=== PATIENT | female | born 1980 | race American Indian/Alaskan Native ===

== ENCOUNTER 2020-10-02 11:49 | Inpatient (IN) | payer OTHER ==
[2020-10-02 13:42] LABS: Bilirubin,Urine NEG (Negative); Blood,Urine NEG (Negative); Color,Urine Yellow (Yellow); Mucus,Urine FEW /HPF; Protein,Urine <15 mg/dL mg/dL (Negative); Urobilinogen,Urine < 2.0 mg/dL (<2.0)
[2020-10-02 13:58] LABS: Basophils # (Auto) 0.1 K/mm3 (0.0-0.1); Eosinophils % (Auto) 0.6 % (0.0-4.3); Hematocrit 40.7 % (30.3-42.9); Hemoglobin 14.1 gm/dl (10.1-14.3); Lymphocytes # (Auto) 1.3 K/mm3 (1.2-5.4); Mean Corpuscular HGB Conc 35 % (30-34); Mean Corpuscular Volume 85 fl (79-97); Monocytes # (Auto) 0.5 K/mm3 (0.0-0.8); Monocytes % (Auto) 7.4 % (0.0-7.3); Platelet Count 298 K/mm3 (140-440); Red Cell Distribution Width 15.5 % (13.2-15.2)
[2020-10-02 14:12] LABS: Alanine Aminotransferase 11 units/L (7-56); Albumin 4.3 g/dL (3.9-5); Blood Urea Nitrogen 9 mg/dL (7-17); Calcium 9.3 mg/dL (8.4-10.2); Hemolysis Index 7
[2020-10-02 14:19] LABS: BUN/Creatinine Ratio 18
[2020-10-02] MEDS ORDERED: MORPHINE 4 MG/1 ML INJ IV ONE (16:08)
[2020-10-02] MEDS ORDERED: ONDANSETRON 4 MG/2 ML INJ IV ONE (16:08)
[2020-10-02] MEDS ORDERED: SODIUM CHLORIDE 0.9% 1000 ML 1,000 ML IV ONE (16:08)
[2020-10-02] MEDS ORDERED: FAMOTIDINE 20 MG/2 ML INJ IV ONE (16:08)
--- NOTE | 2020-10-02 17:51 | Ultrasound Report ---
LIMITED RUQ ABDOMINAL ULTRASOUND INDICATION: RUQ/epigastric pain, hx of gallstones. COMPARISON: No relevant prior imaging study available. FINDINGS: Pancreas: Visualized portions show no significant abnormality. Abdominal Aorta: No significant abnormality. IVC: No significant abnormality. Liver: No significant abnormality. Normal hepatopedal blood flow in the main portal vein. Gallbladder: No stones in gallbladder with mild wall thickening. Bile ducts: No significant abnormality. Common bile duct measures 5 mm. Right kidney: No significant abnormality visualized.. Free fluid: None. Additional Findings: None. IMPRESSION: 1. Multiple stones in the gallbladder with mild gallbladder wall thickening raising the possibility o f acute cholecystitis.. Signer Name: Anastacio Tovar MD Signed: 10/02/2020 5:47 PM Workstation Name: [id number]
--- NOTE | 2020-10-02 18:11 | Emergency Department Report ---
ED Abdominal Pain HPI - General Chief Complaint: Abdominal Pain Stated Complaint: ABDOMINAL PAIN Time Seen by Provider: 10/02/20 16:01 Source: patient Mode of arrival: Ambulatory Limitations: No Limitations - History of Present Illness Initial Comments: Patient is a 40-year-old female presents emergency room with complaints of epigastric and right upper quadrant pain that began last night. She has associated nausea and vomiting. She denies any fever, diarrhea, urinary symptoms. She denies any sick contacts or recent travel. Patient states that s he recently just started back on a keto diet approximately 5 days ago. Patient states that she drinks alcohol 2-3 times a week. Patient states that she was diagnosed with gallstones a few years ago but never followed back up. She denies any allergies to medications. She denies any past abdominal surgical history. Severity scale (0 -10): 4 - Related Data Previous Rx's Medication Instructions Recorded Last Taken Type Acetaminophen/Codeine [Tylenol #3] 1 tab PO Q6H PRN #25 tab 08/08/14 Unknown Rx Cyclobenzaprine [Flexeril 10mg] 10 mg PO TID PRN #30 tablet 08/08/14 Unknown Rx Ibuprofen [Motrin] 600 mg PO Q8H PRN #50 tablet 08/08/14 Unknown Rx Acetaminophen/Codeine [Tylenol 1 tab PO Q6H PRN #12 tab 08/11/18 Unknown Rx /Codeine # 3 tab] Ondansetron [Zofran Odt] 4 mg PO Q8HR PRN #20 tab.rapdis 08/11/18 Unknown Rx Allergies Allergy/AdvReac Type Severity Reaction Status Date / Time No Known Allergies Allergy Unverified 08/08/14 15:37 ED Review of Systems ROS: Stated complaint: ABDOMINAL PAIN Other details as noted in HPI Comment: All other systems reviewed and negative ED Past Medical Hx - Past Medical History Previous Medical History?: No - Surgical History Past Surgical History?: No - Social History Smoking Status: Current Every Day Smoker Substance Use Type: Alcohol - Medications Home Medications: Home Medications Medication Instructions Recorded Confirmed Last Taken Type Acetaminophen/Codeine [Tylenol #3] 1 tab PO Q6H PRN #25 tab 08/08/14 Unknown Rx Cyclobenzaprine [Flexeril 10mg] 10 mg PO TID PRN #30 tablet 08/08/14 Unknown Rx Ibuprofen [Motrin] 600 mg PO Q8H PRN #50 tablet 08/08/14 Unknown Rx Acetaminophen/Codeine [Tylenol 1 tab PO Q6H PRN #12 tab 08/11/18 Unknown Rx /Codeine # 3 tab] Ondansetron [Zofran Odt] 4 mg PO Q8HR PRN #20 tab.rapdis 08/11/18 Unknown Rx ED Physical Exam - General Limitations: No Limitations General appearance: alert, in no apparent distress - Head Head exam: Present: atraumatic, normocephalic - Eye Eye exam: Present: normal appearance - ENT ENT exam: Present: mucous membranes moist - Respiratory Respiratory exam: Present: normal lung sounds bilaterally. Absent: respiratory distress, wheezes, rales, rhonchi, stridor, chest wall tenderness, accessory muscle use, decreased breath sounds, prolonged expiratory - Cardiovascular Cardiovascular Exam: Present: regular rate, normal rhythm, normal heart sounds. Absent: systolic murmur, diastolic murmur, rubs, gallop - GI/Abdominal GI/Abdominal exam: Present: soft, tenderness (epigastric, RUQ), normal bowel sounds. Absent: distended, guarding, rebound, rigid - Neurological Exam Neurological exam: Present: alert, oriented X3 - Psychiatric Psychiatric exam: Present: normal affect, normal mood - Skin Skin exam: Present: warm, dry, intact ED Course Vital Signs 10/02/20 10/02/20 10/02/20 12:38 17:40 19:00 Temperature 97.9 F Pulse Rate 75 Respiratory 20 16 16 Rate Blood Pressure 134/89 O2 Sat by Pulse 99 Oximetry 10/02/20 10/02/20 10/02/20 19:30 21:31 21:46 Temperature Pulse Rate 72 70 Respiratory 18 13 Rate Blood Pressure 129/84 129/84 O2 Sat by Pulse 98 100 Oximetry 10/02/20 10/02/20 10/02/20 22:25 22:26 22:31 Temperature 97.6 F Pulse Rate Respiratory Rate Blood Pressure 142/90 142/90 O2 Sat by Pulse 96 97 Oximetry 10/02/20 22:45 Temperature Pulse Rate Respiratory Rate Blood Pressure 141/96 O2 Sat by Pulse 99 Oximetry - Consultations Consultation #1: 10/02/20 18:[address] Chadwick, general surgeon regarding patient presentation and results, advised to keep patient n.p.o., give IV antibiotics, will see patient in the morning 10/02/20 18:[address] Fiore, hospitalist will accept and resume care of patient, advised to bridge patient to 3B surgical unit ED Medical Decision Making - Lab Data Result diagrams: 10/02/20 13:38 10/02/20 13:38 Lab Results 10/02/20 10/02/20 10/02/20 Range/Units 12:56 13:38 13:38 WBC 7.0 (4.5-11.0) K/mm3 RBC 4.80 (3.65-5.03) M/mm3 Hgb 14.1 (10.1-14.3) gm/dl Hct 40.7 (30.3-42.9) % MCV 85 (79-97) fl MCH 29 (28-32) pg MCHC 35 H (30-34) % RDW 15.5 H (13.2-15.2) % Plt Count 298 (140-440) K/mm3 Lymph % (Auto) 19.0 (13.4-35.0) % [place] % (Auto) 7.4 H (0.0-7.3) % Eos % (Auto) 0.6 (0.0-4.3) % Baso % (Auto) 1.0 (0.0-1.8) % Lymph # (Auto) 1.3 (1.2-5.4) K/mm3 [place] # (Auto) 0.5 (0.0-0.8) K/mm3 Eos # (Auto) 0.0 (0.0-0.4) K/mm3 Baso # (Auto) 0.1 (0.0-0.1) K/mm3 Seg Neutrophils % 72.0 H (40.0-70.0) % Seg Neutrophils # 5.0 (1.8-7.7) K/mm3 Sodium 131 L (137-145) mmol/L Potassium 4.4 (3.6-5.0) mmol/L Chloride 98.9 (98-107) mmol/L Carbon Dioxide 21 L (22-30) mmol/L Anion Gap 16 mmol/L BUN 9 (7-17) mg/dL Creatinine 0.5 L (0.6-1.2) mg/dL Estimated GFR > 60 ml/min BUN/Creatinine Ratio 18 % Glucose 100 (65-100) mg/dL Calcium 9.3 (8.4-10.2) mg/dL Total Bilirubin 0.30 (0.1-1.2) mg/dL AST 15 (5-40) units/L ALT 11 (7-56) units/L Alkaline Phosphatase 48 (35-129) units/L Total Protein 8.1 (6.3-8.2) g/dL Albumin 4.3 (3.9-5) g/dL Albumin/Globulin Ratio 1.1 % Lipase 46 (13-60) units/L HCG, Qual (Negative) Urine Color Yellow (Yellow) Urine Turbidity Clear (Clear) Urine pH 7.0 (5.0-7.0) Ur Specific [place] 1.014 (1.003-1.030) Urine Protein <15 mg/dl (Negative) mg/dL Urine Glucose (UA) Neg (Negative) mg/dL Urine Ketones 20 (Negative) mg/dL Urine Blood Neg (Negative) Urine Nitrite Pos (Negative) Urine Bilirubin Neg (Negative) Urine Urobilinogen < 2.0 (<2.0) mg/dL Ur Leukocyte Esterase Neg (Negative) Urine WBC (Auto) 1.0 (0.0-6.0) /HPF Urine RBC (Auto) 2.0 (0.0-6.0) /HPF U Epithel Cells (Auto) 4.0 (0-13.0) /HPF Urine Mucus Few /HPF // Range/Units 13:38 WBC (4.5-11.0) K/mm3 RBC (3.65-5.03) M/mm3 Hgb (10.1-14.3) gm/dl Hct (30.3-42.9) % MCV (79-97) fl MCH (28-32) pg MCHC (30-34) % RDW (13.2-15.2) % Plt Count (140-440) K/mm3 Lymph % (Auto) (13.4-35.0) % [place] % (Auto) (0.0-7.3) % Eos % (Auto) (0.0-4.3) % Baso % (Auto) (0.0-1.8) % Lymph # (Auto) (1.2-5.4) K/mm3 [place] # (Auto) (0.0-0.8) K/mm3 Eos # (Auto) (0.0-0.4) K/mm3 Baso # (Auto) (0.0-0.1) K/mm3 Seg Neutrophils % (40.0-70.0) % Seg Neutrophils # (1.8-7.7) K/mm3 Sodium (137-145) mmol/L Potassium (3.6-5.0) mmol/L Chloride (98-107) mmol/L Carbon Dioxide (22-30) mmol/L Anion Gap mmol/L BUN (7-17) mg/dL Creatinine (0.6-1.2) mg/dL Estimated GFR ml/min BUN/Creatinine Ratio % Glucose (65-100) mg/dL Calcium (8.4-10.2) mg/dL Total Bilirubin (0.1-1.2) mg/dL AST (5-40) units/L ALT (7-56) units/L Alkaline Phosphatase (35-129) units/L Total Protein (6.3-8.2) g/dL Albumin (3.9-5) g/dL Albumin/Globulin Ratio % Lipase (13-60) units/L HCG, Qual Negative (Negative) Urine Color (Yellow) Urine Turbidity (Clear) Urine pH (5.0-7.0) Ur Specific [place] (1.003-1.030) Urine Protein (Negative) mg/dL Urine Glucose (UA) (Negative) mg/dL Urine Ketones (Negative) mg/dL Urine Blood (Negative) Urine Nitrite (Negative) Urine Bilirubin (Negative) Urine Urobilinogen (<2.0) mg/dL Ur Leukocyte Esterase (Negative) Urine WBC (Auto) (0.0-6.0) /HPF Urine RBC (Auto) (0.0-6.0) /HPF U Epithel Cells (Auto) (0-13.0) /HPF Urine Mucus /HPF - Radiology Data Radiology results: report reviewed Ordering Physician: KAIT SOSA Date of Service: 10/02/20 Procedure(s): US abdomen limited Accession Number(s): [id number] cc: KAIT SOSA LIMITED RUQ ABDOMINAL ULTRASOUND INDICATION: RUQ/epigastric pain, hx of gallstones. COMPARISON: No relevant prior imaging study available. FINDINGS: Pancreas: Visualized portions show no significant abnormality. Abdominal Aorta: No significant abnormality. IVC: No significant abnormality. Liver: No significant abnormality. Normal hepatopedal blood flow in the main portal vein. Gallbladder: No stones in gallbladder with mild wall thickening. Bile ducts: No significant abnormality. Common bile duct measures 5 mm. Right kidney: No significant abnormality visualized.. Free fluid: None. Additional Findings: None. IMPRESSION: 1. Multiple stones in the gallbladder with mild gallbladder wall thickening raising the possibility of acute cholecystitis.. Signer Name: Anastacio Tovar MD Signed: 10/02/2020 5:47 PM Workstation Name: [id number] Transcribed By: LAURITA Dictated By: Anastacio Tovar MD Electronically Authenticated By: Anastacio Tovar MD Signed Date/Time: 10/02/201746 DD/ 45 TD/TT: - Medical Decision Making Patient is a 40-year-old female presents emergency room with complaints of e pigastric and right upper quadrant pain that began last night. She has associated nausea and vomiting. She denies any fever, diarrhea, urinary symptoms. She denies any sick contacts or recent travel. Patient states that she recently just started back on a keto diet approximately 5 days ago. Patient states that she drinks alcohol 2-3 times a week. Patient states that she was diagnosed with gallstones a few years ago but never followed back up. She denies any allergies to medications. She denies any past abdominal surgical history. Vitals are stable. On exam:epigastric, RUQ tenderness palpation, no guarding, no rebound, no rigidity, normal sounds, no peritoneal signs. Labs are stable. UA without evidence of UTI. Abdominal ultrasound: 1. Multiple stones in the gallbladder with mild gallbladder wall thickening raising the possibility of acute cholecystitis.. Patient given pain medication while in the emergency department, on reexamination patient continues to have pain, patient given IV Dilaudid. Spoke with Dr. Chadwick, general surgeon regarding patient presentation and results, advised to keep patient n.p.o., give IV antibiotics, will see patient in the morning. spoke to Dr. Fiore, hospitalist will accept and resume care of patient, advised to bridge patient to 3B surgical unit. Patient agreeable with admission, admitted to hospitalist service. Critical care attestation.: If time is entered above; I have spent that time in minutes in the direct care of this critically ill patient, excluding procedure time. ED Disposition Clinical Impression: Acute cholecystitis Cholelithiasis Qualifiers: Cholelithiasis location: gallbladder Cholecystitis presence: with cholecystitis Cholecystitis acuity: acute Biliary obstruction: without biliary obstruction Qualified Code(s): K80.00 - Calculus of gallbladder with acute cholecystitis without obstruction Abdominal pain Qualifiers: Abdominal location: epigastric Qualified Code(s): R10.13 - Epigastric pain Nausea & vomiting Qualifiers: Vomiting type: unspecified Vomiting Intractability: non-intractable Qualified Code(s): R11.2 - Nausea with vomiting, unspecified Disposition: DC-01 TO HOME OR SELFCARE Is pt being admited?: Yes Does the pt Need Aspirin: No Condition: Fair Time of Disposition: 18:47
[2020-10-02] MEDS ORDERED: PIPERACIL/TAZOBACTA 4.5/NS 100 4.5 GM/100 ML VIAL IV ONE (18:42)
[2020-10-02] MEDS ORDERED: HYDROmorphone 1 MG/1 ML INJ IV ONE (18:44)
[2020-10-02] MEDS ORDERED: HYDROmorphone 1 MG/1 ML INJ IV PRN (21:18)
--- NOTE | 2020-10-03 01:11 | History and Physical Report ---
History of Present Illness Date of examination: 10/02/20 Date of admission: 10/02/20 18:48 Chief complaint: Right upper quadrant pain for 2 days History of present illness: 40-year-old -[place] female with no significant past medical history comes in for right upper quadrant pain which began last night. Associated with nausea and vomiting. Vomited x1. Pain is about 10 on a scale of 1-10. Relieved by analgesics given in the ER. Alcohol occasionally. No significant past medical history. No precipitating factors. Patient was on keto diet since 5 days. Which may be incidental - Past Medical History Previous Medical History?: No - Surgical History Past Surgical History?: No - Social History Smoking Status: Current Every Day Smoker Substance Use Type: Alcohol - Medications Home Medications: Home Medications Medication Instructions Recorded Confirmed Last Taken Type Acetaminophen/Codeine [Tylenol #3] 1 tab PO Q6H PRN #25 tab 08/08/14 Unknown Rx Cyclobenzaprine [Flexeril 10mg] 10 mg PO TID PRN #30 tablet 08/08/14 Unknown Rx Ibuprofen [Motrin] 600 mg PO Q8H PRN #50 tablet 08/08/14 Unknown Rx Acetaminophen/Codeine [Tylenol 1 tab PO Q6H PRN #12 tab 08/11/18 Unknown Rx /Codeine # 3 tab] Ondansetron [Zofran Odt] 4 mg PO Q8HR PRN #20 tab.rapdis 08/11/18 Unknown Rx Review of Systems ROS: GI right upper quadrant pain associated with nausea and vomiting Constitutional no weight loss or weight gain no fever or chills HEENT no sore throat no post nasal drip no diplopia Neck no neck stiffness no lymph gland enlargement Chest and lungs no shortness of breath cough or wheezing CVS no chest pain no diaphoresis no palpitations Genitourinary system no dysuria no flank pain Musculoskeletal system no muscle pains no joint pains [employer] no syncope no seizures Skin no rash no itching Psychiatric no depression no homicidal or suicidal tendencies Hematologic no lymphedema or bruising Endocrine no polydipsia no polyuria no cold intolerance no heat intolerance Medications and Allergies Allergies Allergy/AdvReac Type Severity Reaction Status Date / Time No Known Allergies Allergy Verified 10/03/20 06:25 Home Medications Medication Instructions Recorded Confirmed Last Taken Type Acetaminophen/Codeine [Tylenol #3] 1 tab PO Q6H PRN #25 tab 08/08/14 10/03/20 Unknown Rx Cyclobenzaprine [Flexeril 10mg] 10 mg PO TID PRN #30 tablet 08/08/14 10/03/20 Unknown Rx Ibuprofen [Motrin] 600 mg PO Q8H PRN #50 tablet 08/08/14 10/03/20 Unknown Rx Acetaminophen/Codeine [Tylenol 1 tab PO Q6H PRN #12 tab 08/11/18 10/03/20 Unknown Rx /Codeine # 3 tab] Ondansetron [Zofran Odt] 4 mg PO Q8HR PRN #20 tab.rapdis 08/11/18 10/03/20 Unknown Rx Active Meds: Active Medications Hydromorphone HCl (Hydromorphone 1 Mg/1 Ml Inj) 0.5 mg IV Q3H PRN PRN Reason: Pain , Severe (7-10) Exam - Constitutional Vitals: Temp Pulse Resp BP Pulse Ox 98.1 F 67 20 126/86 100 10/03/20 00:22 10/03/20 00:22 10/03/20 00:22 10/03/20 00:22 10/03/20 00:22 General appearance: Present: no acute distress, well-nourished - EENT Eyes: Present: PERRL ENT: hearing intact, clear oral mucosa - Neck Neck: Present: supple, normal ROM - Respiratory Respiratory effort: normal Respiratory: bilateral: CTA - Cardiovascular Heart rate: 78 Rhythm: regular Heart Sounds: Present: S1 & S2. Absent: rub, click - Extremities Extremities: no ischemia, pulses intact, pulses symmetrical, No edema Peripheral Pulses: within normal limits - Abdominal General gastrointestinal: Present: soft, tender, non-distended, normal bowel sounds Localized gastrointestinal: tender: RUQ, guarding: RUQ, rebound: RUQ Female genitourinary: Present: normal - Integumentary Integumentary: Present: clear, warm, dry - Musculoskeletal Musculoskeletal: gait normal, strength equal bilaterally - Psychiatric Psychiatric: appropriate mood/affect, intact judgment & insight - Neurologic Neurologic: CNII-XII intact, moves all extremities - Allied Health Allied health notes reviewed: nursing, case management Results - Labs CBC & Chem 7: 10/03/20 02:49 10/03/20 02:49 Labs: Laboratory Last Values WBC 7.0 K/mm3 (4.5-11.0) 10/02/20 13:38 RBC 4.80 M/mm3 (3.65-5.03) 10/02/20 13:38 Hgb 14.1 gm/dl (10.1-14.3) 10/02/20 13:38 Hct 40.7 % (30.3-42.9) 10/02/20 13:38 MCV 85 fl (79-97) 10/02/20 13:38 MCH 29 pg (28-32) 10/02/20 13:38 MCHC 35 % (30-34) H 10/02/20 13:38 RDW 15.5 % (13.2-15.2) H 10/02/20 13:38 Plt Count 298 K/mm3 (140-440) 10/02/20 13:38 Lymph % (Auto) 19.0 % (13.4-35.0) 10/02/20 13:38 [place] % (Auto) 7.4 % (0.0-7.3) H 10/02/20 13:38 Eos % (Auto) 0.6 % (0.0-4.3) 10/02/20 13:38 Baso % (Auto) 1.0 % (0.0-1.8) 10/02/20 13:38 Lymph # (Auto) 1.3 K/mm3 (1.2-5.4) 10/02/20 13:38 [place] # (Auto) 0.5 K/mm3 (0.0-0.8) 10/02/20 13:38 Eos # (Auto) 0.0 K/mm3 (0.0-0.4) 10/02/20 13:38 Baso # (Auto) 0.1 K/mm3 (0.0-0.1) 10/02/20 13:38 Seg Neutrophils % 72.0 % (40.0-70.0) H 10/02/20 13:38 Seg Neutrophils # 5.0 K/mm3 (1.8-7.7) 10/02/20 13:38 Sodium 131 mmol/L (137-145) L 10/02/20 13:38 Potassium 4.4 mmol/L (3.6-5.0) 10/02/20 13:38 Chloride 98.9 mmol/L (98-107) 10/02/20 13:38 Carbon Dioxide 21 mmol/L (22-30) L 10/02/20 13:38 Anion Gap 16 mmol/L 10/02/20 13:38 BUN 9 mg/dL (7-17) 10/02/20 13:38 Creatinine 0.5 mg/dL (0.6-1.2) L 10/02/20 13:38 Estimated GFR > 60 ml/min 10/02/20 13:38 BUN/Creatinine Ratio 18 % 10/02/20 13:38 Glucose 100 mg/dL (65-100) 10/02/20 13:38 Calcium 9.3 mg/dL (8.4-10.2) 10/02/20 13:38 Total Bilirubin 0.30 mg/dL (0.1-1.2) 10/02/20 13:38 AST 15 units/L (5-40) 10/02/20 13:38 ALT 11 units/L (7-56) 10/02/20 13:38 Alkaline Phosphatase 48 units/L (35-129) 10/02/20 13:38 Total Protein 8.1 g/dL (6.3-8.2) 10/02/20 13:38 Albumin 4.3 g/dL (3.9-5) 10/02/20 13:38 Albumin/Globulin Ratio 1.1 % 10/02/20 13:38 Lipase 46 units/L (13-60) 10/02/20 13:38 HCG, Qual Negative (Negative) 10/02/20 13:38 Urine Color Yellow (Yellow) 10/02/20 12:56 Urine Turbidity Clear (Clear) 10/02/20 12:56 Urine pH 7.0 (5.0-7.0) 10/02/20 12:56 Ur Specific [place] 1.014 (1.003-1.030) 10/02/20 12:56 Urine Protein <15 mg/dl mg/dL (Negative) 10/02/20 12:56 Urine Glucose (UA) Neg mg/dL (Negative) 10/02/20 12:56 Urine Ketones 20 mg/dL (Negative) 10/02/20 12:56 Urine Blood Neg (Negative) 10/02/20 12:56 Urine Nitrite Pos (Negative) 10/02/20 12:56 Urine Bilirubin Neg (Negative) 10/02/20 12:56 Urine Urobilinogen < 2.0 mg/dL (<2.0) 10/02/20 12:56 Ur Leukocyte Esterase Neg (Negative) 10/02/20 12:56 Urine WBC (Auto) 1.0 /HPF (0.0-6.0) 10/02/20 12:56 Urine RBC (Auto) 2.0 /HPF (0.0-6.0) 10/02/20 12:56 U Epithel Cells (Auto) 4.0 /HPF (0-13.0) 10/02/20 12:56 Urine Mucus Few /HPF 10/02/20 12:56 - Imaging and Cardiology US - abdomen: report reviewed Imaging and Cardiology: Abdominal ultrasound Multiple stones in the gallbladder with mild gallbladder wall thickening with raising the possibility of acute cholecystitis Shepherd/IV: Voiding Method Toilet Assessment and Plan Advance Directives: Yes (Full code) - Patient Problems (1) Acute cholecystitis Current Visit: Yes Status: Acute Plan to address problem: Patient initiated on IV fluids IV Zosyn and IV analgesics Surgery consult requested (2) Hyponatremia Current Visit: Yes Status: Acute Plan to address problem: On IV normal saline (3) DVT prophylaxis Current Visit: Yes Status: Acute Plan to address problem: On heparin and GI prophylaxis
[2020-10-03] MEDS ORDERED: ONDANSETRON 4 MG/2 ML INJ IV PRN (01:15)
[2020-10-03] MEDS ORDERED: METOCLOPRAMIDE 10 MG/2 ML INJ IV PRN (01:15)
[2020-10-03] MEDS ORDERED: ACETAMINOPHEN 325 MG TAB PO PRN (01:15)
[2020-10-03] MEDS ORDERED: MORPHINE 2 MG/1 ML INJ IV PRN (01:15)
[2020-10-03] MEDS ORDERED: oxyCODONE /ACETAMINOPHEN 5-325MG TAB PO PRN (03:11)
[2020-10-03] MEDS: D5W/0.9% NACL 1,000 ML IV SCH ×2 (03:15→16:06)
[2020-10-03] MEDS: PIPERACIL/TAZOBACTA 4.5/NS 100 4.5 GM/100 ML VIAL IV SCH ×3 (03:16→17:41)
[2020-10-03 03:53] LABS: Basophils % (Auto) 0.4 % (0.0-1.8); Eosinophils # (Auto) 0.1 K/mm3 (0.0-0.4); Eosinophils % (Auto) 2.2 % (0.0-4.3); Hematocrit 39.2 % (30.3-42.9); Lymphocytes # (Auto) 2.3 K/mm3 (1.2-5.4); Lymphocytes % (Auto) 33.4 % (13.4-35.0); Mean Corpuscular HGB Conc 33 % (30-34); Mean Corpuscular Volume 85 fl (79-97); Monocytes # (Auto) 0.5 K/mm3 (0.0-0.8); Monocytes % (Auto) 7.8 % (0.0-7.3); Platelet Count 267 K/mm3 (140-440); Red Blood Count 4.59 M/mm3 (3.65-5.03); Red Cell Distribution Width 15.6 % (13.2-15.2)
[2020-10-03 04:08] LABS: Alanine Aminotransferase 11 units/L (7-56); Albumin 4.2 g/dL (3.9-5); Blood Urea Nitrogen 6 mg/dL (7-17); Calcium 9.7 mg/dL (8.4-10.2); Hemolysis Index 12
[2020-10-03 04:09] LABS: BUN/Creatinine Ratio 10
--- NOTE | 2020-10-03 08:26 | Consultation ---
History of Present Illness Consult date: 10/03/20 Reason for consult: abdominal pain Chief complaint: Abdominal pain - History of present illness History of present illness: 40-year-old female with a history of gallstones who presented to the emergency r oom with 2 days of worsening epigastric abdominal pain radiating to her back. The pain is sharp. She states that the pain started suddenly and gradually got worse, remained constant, and this prompted her visit to the emergency room. She denies fevers or chills but does endorse nausea and vomiting. She states that the nausea and vomiting is resolved. The pain is moderate and is made better with pain medications. She has had pain like this in the past, and states that she was advised to have a cholecystectomy in 2018 due to symptomatic gallstones. She denies fevers or chills, chest pain, shortness of breath. Past History Past Medical History: No medical history Past Surgical History: No surgical history Social history: smoking (Black and mild occasional), alcohol abuse (Occasional) Family history: no significant family history Medications and Allergies Allergies Allergy/AdvReac Type Severity Reaction Status Date / Time No Known Allergies Allergy Verified 10/03/20 06:25 Home Medications Medication Instructions Recorded Confirmed Last Taken Type Acetaminophen/Codeine [Tylenol #3] 1 tab PO Q6H PRN #25 tab 08/08/14 10/03/20 Unknown Rx Cyclobenzaprine [Flexeril 10mg] 10 mg PO TID PRN #30 tablet 08/08/14 10/03/20 Unknown Rx Ibuprofen [Motrin] 600 mg PO Q8H PRN #50 tablet 08/08/14 10/03/20 Unknown Rx Acetaminophen/Codeine [Tylenol 1 tab PO Q6H PRN #12 tab 08/11/18 10/03/20 Unknown Rx /Codeine # 3 tab] Ondansetron [Zofran Odt] 4 mg PO Q8HR PRN #20 tab.rapdis 08/11/18 10/03/20 Unknown Rx Active Meds: Active Medications Acetaminophen (Acetaminophen 325 Mg Tab) 650 mg PO Q4H PRN PRN Reason: Pain MILD(1-3)/Fever >100.5/DORANTES Famotidine (Famotidine 20 Mg/2 Ml Inj) 20 mg IV BID JUSTUS Hydromorphone HCl (Hydromorphone 1 Mg/1 Ml Inj) 0.5 mg IV Q3H PRN PRN Reason: Pain , Severe (7-10) Last Admin: 10/02/20 21:48 Dose: 0.5 mg Documented by: Dextrose/Sodium Chloride (D5ns) 1,000 mls @ 100 mls/hr IV DIRECT JUSTUS Last Admin: 10/03/20 03:15 Dose: 100 mls/hr Documented by: Piperacillin Sod/Tazobactam Sod (Zosyn/Ns 4.5gm/100ml) 4.5 gm in 100 mls @ 200 mls/hr IV Q8H JUSTUS; Protocol Last Admin: 10/03/20 03:16 Dose: 200 mls/hr Documented by: Metoclopramide HCl (Metoclopramide 10 Mg/2 Ml Inj) 10 mg IV Q6H PRN PRN Reason: Nausea And Vomiting Morphine Sulfate (Morphine 2 Mg/1 Ml Inj) 2 mg IV Q4H PRN PRN Reason: Pain, Moderate (4-6) Ondansetron HCl (Ondansetron 4 Mg/2 Ml Inj) 4 mg IV Q8H PRN PRN Reason: Nausea And Vomiting Oxycodone/Acetaminophen (Oxycodone /Acetaminophen 5-325mg Tab) 1 tab PO Q6H PRN PRN Reason: Pain, Moderate (4-6) Sodium Chloride (Sodium Chloride 0.9% 10 Ml Flush Syringe) 10 ml IV BID JUSTUS Sodium Chloride (Sodium Chloride 0.9% 10 Ml Flush Syringe) 10 ml IV PRN PRN PRN Reason: LINE FLUSH Review of Systems All systems: negative (10 point ROS performed and negative except for that listed in HPI) Exam Vital Signs Temp Pulse Resp BP Pulse Ox 97.9 F 75 20 134/89 99 10/02/20 12:38 10/02/20 12:38 10/02/20 12:38 10/02/20 12:38 10/02/20 12:38 Narrative exam: Gen.: Awake, alert, oriented x3. No apparent distress ENT: Trachea midline. No lymphadenopathy. No scleral icterus or conjunctival pallor CV: S1, S2 present Respiratory: No audible wheezes Abdomen: Soft, nondistended, epigastric tenderness to palpation. No rebound, rigidity, guarding Extremities: No clubbing, cyanosis, edema Results - Labs 10/03/20 02:49 10/03/20 02:49 Abnormal lab results 10/02/20 10/02/20 10/03/20 Range/Units 13:38 13:38 02:49 MCHC 35 H (30-34) % RDW 15.5 H 15.6 H (13.2-15.2) % Bond % (Auto) 7.4 H 7.8 H (0.0-7.3) % Seg Neutrophils % 72.0 H (40.0-70.0) % Sodium 131 L (137-145) mmol/L Carbon Dioxide 21 L (22-30) mmol/L BUN (7-17) mg/dL Creatinine 0.5 L (0.6-1.2) mg/dL 10/03/20 Range/Units 02:49 MCHC (30-34) % RDW (13.2-15.2) % Bond % (Auto) (0.0-7.3) % Seg Neutrophils % (40.0-70.0) % Sodium 136 L (137-145) mmol/L Carbon Dioxide (22-30) mmol/L BUN 6 L (7-17) mg/dL Creatinine (0.6-1.2) mg/dL Diabetes panel 10/02/20 10/03/20 10/03/20 Range/Units 13:38 02:49 02:49 Sodium 131 L 136 L (137-145) mmol/L Potassium 4.4 4.2 (3.6-5.0) mmol/L Chloride 98.9 100.3 (98-107) mmol/L Carbon Dioxide 21 L 24 (22-30) mmol/L BUN 9 6 L (7-17) mg/dL Creatinine 0.5 L 0.6 (0.6-1.2) mg/dL Glucose 100 77 (65-100) mg/dL Hemoglobin A1c 5.6 (4-6) % Calcium 9.3 9.7 (8.4-10.2) mg/dL AST 15 16 (5-40) units/L ALT 11 11 (7-56) units/L Alkaline Phosphatase 48 40 (35-129) units/L Total Protein 8.1 7.4 (6.3-8.2) g/dL Albumin 4.3 4.2 (3.9-5) g/dL Calcium panel 10/02/20 10/03/20 Range/Units 13:38 02:49 Calcium 9.3 9.7 (8.4-10.2) mg/dL Albumin 4.3 4.2 (3.9-5) g/dL Pituitary panel 10/02/20 10/03/20 Range/Units 13:38 02:49 Sodium 131 L 136 L (137-145) mmol/L Potassium 4.4 4.2 (3.6-5.0) mmol/L Chloride 98.9 100.3 (98-107) mmol/L Carbon Dioxide 21 L 24 (22-30) mmol/L BUN 9 6 L (7-17) mg/dL Creatinine 0.5 L 0.6 (0.6-1.2) mg/dL Glucose 100 77 (65-100) mg/dL Calcium 9.3 9.7 (8.4-10.2) mg/dL Adrenal panel 10/02/20 10/03/20 Range/Units 13:38 02:49 Sodium 131 L 136 L (137-145) mmol/L Potassium 4.4 4.2 (3.6-5.0) mmol/L Chloride 98.9 100.3 (98-107) mmol/L Carbon Dioxide 21 L 24 (22-30) mmol/L BUN 9 6 L (7-17) mg/dL Creatinine 0.5 L 0.6 (0.6-1.2) mg/dL Glucose 100 77 (65-100) mg/dL Calcium 9.3 9.7 (8.4-10.2) mg/dL Total Bilirubin 0.30 0.30 (0.1-1.2) mg/dL AST 15 16 (5-40) units/L ALT 11 11 (7-56) units/L Alkaline Phosphatase 48 40 (35-129) units/L Total Protein 8.1 7.4 (6.3-8.2) g/dL Albumin 4.3 4.2 (3.9-5) g/dL - Imaging US - abdomen: report reviewed, image reviewed Assessment and Plan 40-year-old female with acute cholecystitis Plan: 1. Full liquid diet, NPO p MN tonight 2. IVF 3. prn pain and nausea control 4. IV abx 5. DVT ppx 6. Imaging results discussed with the patient. I recommend cholecystectomy. I described the procedure along with all risks, benefits, alternatives to the patient. All questions were answered and she is agreeable to proceed. Consent obtained. Patient added to the OR schedule for tomorrow 10/04/2020 as there is no availability today. Thank you for this consultation. Please call with any questions or concerns. Evaluation and treatment of this patient was during the time of the national and state emergency arising from COVID19 coronavirus pandemic. Treatment and procedures performed meet the current and available best practice and guidelines for patient during the COVID pandemic.
[2020-10-03] MEDS: FAMOTIDINE 20 MG/2 ML INJ IV SCH ×2 (09:07→21:55)
--- NOTE | 2020-10-03 10:28 | Progress Note ---
Assessment and Plan Assessment and plan: -- Acute cholecystitis Current Visit: Yes Status: Acute Evaluated by surgery , scheduled for lap cholecystectomy tomorrow Clear liquids now , n.p.o. from midnight Supportive care with IV fluids and IV antibiotics Continue Zosyn, surgery tomorrow -- Hyponatremia Current Visit: Yes Status: Acute Mild improvement , continue normal saline, closely monitor electrolytes --Obesity ; BMI 36.8 ; Current Visit: Yes Status: Acute patient needs weight reduction when medically stable Diet modification, exercise as tolerated and weight reduction When stable --DVT prophylaxis Current Visit: Yes Status: Acute On heparin and GI prophylaxis Patient n.p.o. midnight Scheduled for lap cholecystectomy tomorrow Plan of care reviewed with the patient and her nurse 10/03/2020; patient with acute cholecystitis Evaluated by surgery, scheduled for lap cholecystectomy tomorrow On IV fluids IV antibiotics, n.p.o. from midnight History Interval history: I seen and examined the patient at bedside Patient's chart and medications reviewed Patient with acute cholecystitis Evaluated by surgeon Scheduled for lap cholecystectomy tomorrow Patient feels slightly better still some pain in the right upper quadrant Vital signs noted Hospitalist Physical - Constitutional Vitals: Temp Pulse Resp BP Pulse Ox 98.3 F 72 18 114/81 99 10/03/20 08:13 10/03/20 08:13 10/03/20 08:13 10/03/20 08:13 10/03/20 08:13 General appearance: Present: no acute distress, well-nourished - EENT Eyes: Present: PERRL, EOM intact - Neck Neck: Present: supple, normal ROM - Respiratory Respiratory effort: normal Respiratory: bilateral: diminished, negative: rales, rhonchi, wheezing - Cardiovascular Rhythm: regular Heart Sounds: Present: S1 & S2 - Extremities Extremities: no ischemia, No edema Peripheral Pulses: within normal limits - Abdominal General gastrointestinal: soft, non-tender, tender (Mild tenderness right upper quadrant of the abdomen), non-distended, normal bowel sounds - Integumentary Integumentary: Present: clear, warm - Psychiatric Psychiatric: appropriate mood/affect, cooperative - Neurologic Neurologic: CNII-XII intact, moves all extremities Results - Labs CBC & Chem 7: 10/03/20 02:49 10/03/20 02:49 Labs: Laboratory Last Values WBC 6.8 K/mm3 (4.5-11.0) 10/03/20 02:49 RBC 4.59 M/mm3 (3.65-5.03) 10/03/20 02:49 Hgb 13.0 gm/dl (10.1-14.3) 10/03/20 02:49 Hct 39.2 % (30.3-42.9) 10/03/20 02:49 MCV 85 fl (79-97) 10/03/20 02:49 MCH 28 pg (28-32) 10/03/20 02:49 MCHC 33 % (30-34) 10/03/20 02:49 RDW 15.6 % (13.2-15.2) H 10/03/20 02:49 Plt Count 267 K/mm3 (140-440) 10/03/20 02:49 Lymph % (Auto) 33.4 % (13.4-35.0) 10/03/20 02:49 [place] % (Auto) 7.8 % (0.0-7.3) H 10/03/20 02:49 Eos % (Auto) 2.2 % (0.0-4.3) 10/03/20 02:49 Baso % (Auto) 0.4 % (0.0-1.8) 10/03/20 02:49 Lymph # (Auto) 2.3 K/mm3 (1.2-5.4) 10/03/20 02:49 [place] # (Auto) 0.5 K/mm3 (0.0-0.8) 10/03/20 02:49 Eos # (Auto) 0.1 K/mm3 (0.0-0.4) 10/03/20 02:49 Baso # (Auto) 0.0 K/mm3 (0.0-0.1) 10/03/20 02:49 Seg Neutrophils % 56.2 % (40.0-70.0) 10/03/20 02:49 Seg Neutrophils # 3.8 K/mm3 (1.8-7.7) 10/03/20 02:49 Sodium 136 mmol/L (137-145) L 10/03/20 02:49 Potassium 4.2 mmol/L (3.6-5.0) 10/03/20 02:49 Chloride 100.3 mmol/L (98-107) 10/03/20 02:49 Carbon Dioxide 24 mmol/L (22-30) 10/03/20 02:49 Anion Gap 16 mmol/L 10/03/20 02:49 BUN 6 mg/dL (7-17) L 10/03/20 02:49 Creatinine 0.6 mg/dL (0.6-1.2) 10/03/20 02:49 Estimated GFR > 60 ml/min 10/03/20 02:49 BUN/Creatinine Ratio 10 % 10/03/20 02:49 Glucose 77 mg/dL (65-100) 10/03/20 02:49 Hemoglobin A1c 5.6 % (4-6) 10/03/20 02:49 Calcium 9.7 mg/dL (8.4-10.2) 10/03/20 02:49 Total Bilirubin 0.30 mg/dL (0.1-1.2) 10/03/20 02:49 AST 16 units/L (5-40) 10/03/20 02:49 ALT 11 units/L (7-56) 10/03/20 02:49 Alkaline Phosphatase 40 units/L (35-129) 10/03/20 02:49 Total Protein 7.4 g/dL (6.3-8.2) 10/03/20 02:49 Albumin 4.2 g/dL (3.9-5) 10/03/20 02:49 Albumin/Globulin Ratio 1.3 % 10/03/20 02:49 Lipase 46 units/L (13-60) 10/02/20 13:38 HCG, Qual Negative (Negative) 10/02/20 13:38 Urine Color Yellow (Yellow) 10/02/20 12:56 Urine Turbidity Clear (Clear) 10/02/20 12:56 Urine pH 7.0 (5.0-7.0) 10/02/20 12:56 Ur Specific [place] 1.014 (1.003-1.030) 10/02/20 12:56 Urine Protein <15 mg/dl mg/dL (Negative) 10/02/20 12:56 Urine Glucose (UA) Neg mg/dL (Negative) 10/02/20 12:56 Urine Ketones 20 mg/dL (Negative) 10/02/20 12:56 Urine Blood Neg (Negative) 10/02/20 12:56 Urine Nitrite Pos (Negative) 10/02/20 12:56 Urine Bilirubin Neg (Negative) 10/02/20 12:56 Urine Urobilinogen < 2.0 mg/dL (<2.0) 10/02/20 12:56 Ur Leukocyte Esterase Neg (Negative) 10/02/20 12:56 Urine WBC (Auto) 1.0 /HPF (0.0-6.0) 10/02/20 12:56 Urine RBC (Auto) 2.0 /HPF (0.0-6.0) 10/02/20 12:56 U Epithel Cells (Auto) 4.0 /HPF (0-13.0) 10/02/20 12:56 Urine Mucus Few /HPF 10/02/20 12:56 Shepherd/IV: Voiding Method Toilet Active Medications - Current Medications Current Medications: Generic Name Dose Route Start Last Admin Trade Name Freq PRN Reason Stop Dose Admin Acetaminophen 650 mg 10/03/20 01:15 Acetaminophen 325 Mg Tab PO Q4H PRN Pain MILD(1-3)/Fever >100.5/DORANTES Famotidine 20 mg 10/03/20 10:00 10/03/20 09:07 Famotidine 20 Mg/2 Ml Inj IV 20 mg BID JUSTUS Administration Hydromorphone HCl 0.5 mg 10/02/20 21:18 10/02/20 21:48 Hydromorphone 1 Mg/1 Ml Inj IV 0.5 mg Q3H PRN Administration Pain , Severe (7-10) Dextrose/Sodium Chloride 1,000 mls @ 100 mls/hr 10/03/20 02:00 10/03/20 03:15 D5ns IV 100 mls/hr DIRECT JUSTUS Administration Piperacillin Sod/Tazobactam Sod 4.5 gm in 100 mls @ 200 mls/hr 10/03/20 02:00 10/03/20 09:07 Zosyn/Ns 4.5gm/100ml IV 200 mls/hr Q8H JUSTUS Administration Protocol Metoclopramide HCl 10 mg 10/03/20 01:15 Metoclopramide 10 Mg/2 Ml Inj IV Q6H PRN Nausea And Vomiting Morphine Sulfate 2 mg 10/03/20 01:15 Morphine 2 Mg/1 Ml Inj IV Q4H PRN Pain, Moderate (4-6) Ondansetron HCl 4 mg 10/03/20 01:15 Ondansetron 4 Mg/2 Ml Inj IV Q8H PRN Nausea And Vomiting Oxycodone/Acetaminophen 1 tab 10/03/20 03:11 Oxycodone /Acetaminophen 5-325mg Tab PO Q6H PRN Pain, Moderate (4-6) Sodium Chloride 10 ml 10/03/20 10:00 10/03/20 09:07 Sodium Chloride 0.9% 10 Ml Flush Syringe IV 10 ml BID JUSTUS Administration Sodium Chloride 10 ml 10/03/20 01:15 Sodium Chloride 0.9% 10 Ml Flush Syringe IV PRN PRN LINE FLUSH
[2020-10-04] MEDS: PIPERACIL/TAZOBACTA 4.5/NS 100 4.5 GM/100 ML VIAL IV SCH (02:23)
[2020-10-04] MEDS ORDERED: LIDOCAINE (1%) 10 MG/1 ML VIAL 20 ML MDV ONE (07:04)
[2020-10-04] MEDS ORDERED: BUPIVACAINE/PF (0.5%) 5 MG/1 ML 30 ML VIAL INFILTRATI ONE ×3 (07:04→07:48)
[2020-10-04] MEDS ORDERED: LIDOCAINE MPF (2%) 20 MG/1 ML VIAL 5 ML ONE (07:14)
[2020-10-04] MEDS ORDERED: ROCURONIUM 50 MG/5 ML INJ IV ONE ×2 (07:14→08:25)
[2020-10-04] MEDS ORDERED: HYDROmorphone 1 MG/1 ML INJ ONE (07:14)
[2020-10-04] MEDS ORDERED: propofoL 200 MG/20 ML VIAL IV ONE (07:14)
--- NOTE | 2020-10-04 07:27 | Anesthesia Day of Surgery ---
Anesthesia Day of Surgery - Day of Surgery Patient Examined: Yes Patient H&P Reviewed: Yes Patient is NPO: Yes
--- NOTE | 2020-10-04 07:28 | Anesthesia Consultation ---
Anesthesia Consult and Med Hx Date of service: 10/04/20 - Airway Anesthetic Teeth Evaluation: Good ROM Head & Neck: Adequate Mental/Hyoid Distance: Adequate Mallampati Class: Class II Intubation Access Assessment: Good - Pre-Operative Health Status ASA Pre-Surgery Classification: ASA3 Proposed Anesthetic Plan: General - Pulmonary Hx Smoking: Yes (black and milds) Hx Asthma: No COPD: No Hx Pneumonia: No - Gastrointestinal Hx Gastroesophageal Reflux Disease: Yes (occasional dietary) - Endocrine Hx End Stage Renal Disease: No - Other Systems Hx Alcohol Use: Yes (socially) Hx Obesity: Yes
[2020-10-04] MEDS ORDERED: WATER FOR IRRIG STERILE 1,500 ML BOTTLE IR ONE ×2 (07:48)
[2020-10-04] MEDS ORDERED: LIDOCAINE (1%) 10 MG/1 ML VIAL 20 ML MDV INFILTRATI ONE ×2 (07:48)
[2020-10-04] MEDS ORDERED: SODIUM CHLORIDE 0.9% IRRIG SOLN 2000 ML IR ONE ×2 (07:48)
[2020-10-04] MEDS ORDERED: HYDROmorphone 1 MG/1 ML INJ IV PRN ×2 (08:30)
[2020-10-04] MEDS ORDERED: ONDANSETRON 4 MG/2 ML INJ IV PRN (08:30)
[2020-10-04] MEDS ORDERED: NEOSTIGMINE 10MG/10 ML INJ MDV ONE (08:33)
[2020-10-04] MEDS ORDERED: GLYCOPYRROLATE 0.4 MG/2 ML INJ ONE (08:33)
[2020-10-04] MEDS ORDERED: LACTATED RINGERS 1,000 ML ONE ×2 (08:36→09:40)
--- NOTE | 2020-10-04 08:50 | Operative Report ---
Operative Report Operative Report: Date of operation: 10/04/2020 Preoperative diagnosis: Acute cholecystitis postOperative diagnoses: Acute calculus cholecystitis Procedure performed: Laparoscopic cholecystectomy Surgeon: Bk Chadwick DO Goat Driver surgeon: Elver Brito MD Anesthesia: Gen. endotracheal anesthesia Findings: Contracted gallbladder containing large stone, thickened wall, chronic scarring at neck Specimen: Gallbladder Estimated blood loss: <10cc Complications: None Disposition: Stable to PACU HPI an indication: 40-year-old female who presented to the emergency room with worsening epigastric abdominal pain, nausea, vomiting. Work-up revealed acute cholecystitis on right upper quadrant ultrasound. It was recommended that the patient undergo cholecystectomy. All risks, benefits, alternatives to surgery were discussed in detail and questions answered. Consent was obtained for laparoscopic, possible open cholecystectomy, possible cholangiogram. Procedure in detail: The patient was identified in the preoperative area and taken back to the operating room, placed on the operating room table in supine position. After anesthesia was induced, the abdomen was prepped and draped in usual sterile fashion and timeout was performed. Local anesthetic was infiltrated into all of the skin incision sites. Using an 11 blade, a s upraumbilical incision was made through which a Veress needle was inserted. The position of the veress needle was confirmed with the saline drop test and the abdomen was then insufflated to 15 mmHg without incident. The veress needle was then removed and a 5 mm Optiview trocar placed through this incision. The abdomen was then inspected and there was no underlying injury to any of the abdominal contents. An additional 12 mm subxyphoid port, and 2, 5mm RUQ ports were then placed under direct visualization. The patient was then placed into reverse Trendelberg and tilted to the left. The gallbladder was visualized and appeared contracted with 1 large stone palpable taking up the majority of the gallbladder lumen. The gallbladder was grasped and retracted cephalad and above the liver. The infundibulum was grasped and retracted laterally. Dissection was carried out at the neck of the gallbladder using a combination of blunt dissection with the [place] and hook electrocautery in order to dissect the cystic duct and artery. The cystic duct and artery were the only 2 structures seen entering the gallbladder. The medial and lateral peritoneal attachments to the gallbladder were dissected in order to obtain a critical view. The cystic duct was short. The critical view was successfully obtained. 2 clips were placed on the proximal aspect of the cystic duct and 1 distally and this was transected in between the clips using EndoShears. 2 clips were placed on the proximal aspect of the cystic artery and 1 distally this was transected in between the clips using electrocautery. A PDS Endoloop was also placed around the cystic duct just proximal to the first clip. The gallbladder was dissected from the liver bed using hook electrocautery and placed into an Endo Catch bag. This was removed via the 12 mm port which did need to be extended in order to facilitate extraction. The gallbladder fossa was inspected and hemostasis very carefully achieved using electrocautery. No active bleeding or bile leakage was seen. The clips on the cystic duct and artery were visualized and intact. Hemostasis was ensured. The patient was then placed into neutral position. The 12 mm port fascia was closed with interrupted 0 Vicryl sutures using the Rene Trejo device. The remaining ports were removed under direct visualization. Skin incisions were closed with 4-0 Monocryl subcuticular stitches and skin glue. All skin incisions were once again infiltrated with local anesthetic. At the end case all sponge, instrument, sharp counts were correct 2. The patient was awoken from anesthesia, extubated, and taken to PACU in stable condition.
[2020-10-04] MEDS ORDERED: oxyCODONE /ACETAMINOPHEN 5-325MG TAB PO PRN (09:00)
--- NOTE | 2020-10-04 10:08 | Post Anesthesia Evaluation ---
- Post Anesthesia Evaluation Patient Participated: Yes Airway Patent: Yes Stable Respiratory Function: Yes Nausea/Vomiting: No Temp > 96.8F: Yes Pain Manageable: Yes Adequeate Hydration: Yes Anesthesia Complications: No Block Receding Appropriately: Not Applicable Patient on Ventilator: No
[2020-10-04] MEDS: FAMOTIDINE 20 MG/2 ML INJ IV SCH (10:09)
--- NOTE | 2020-10-04 13:07 | Discharge Summary ---
Providers - Providers Date of Admission: 10/02/20 18:48 Date of discharge: 10/04/20 Attending physician: ZEENAT ALEJANDRA 10/02/20 18:47 Consult to Physician [CONS] Stat Comment: Consulting Provider: MARK JEWELL Physician Instructions: Reason For Exam: acute cholecystitis Primary care physician: MAINTENANCE MECHANIC TECHNICIAN Hospitalization Reason for admission: Right upper quadrant pain/acute cholecystitis Condition: Fair Pertinent studies: Abdominal ultrasound Procedures: postOperative diagnoses: Acute calculus cholecystitis Procedure performed: Laparoscopic cholecystectomy Hospital course: 40-year-old -[place] female with no significant past medical history comes in for right upper quadrant pain of 2 days duration. Associated with nausea and vomiting. Vomited x1. Patient was initially evaluated in the emergency room, had abdominal ultrasound findings consistent with acute cholecystitis Patient was placed on empiric antibiotics n.p.o. status IV fluids pain medications, evaluated by general surgeon, and subsequently underwent lap cholecystectomy 10/04/2020. Patient received uncomplicated brief postop stay, patient symptoms significantly improved, tolerated diet today Vital signs noted stable patient has no new complaints, patient is hemodyna mically and clinically stable for discharge and follow-up with primary care physician and surgeon per schedule Surgeon has cleared the patient for discharge and follow-up in 2 weeks Patient also advised diet modification exercise as tolerated and weight reduction when medically stable Patient is stable at discharge Discharge diagnosis;, -- Acute cholecystitis Current Visit: Yes Status: Acute s/p lap cholecystectomy 10/04/2020 Regular diet as tolerated, pain medications -- Hyponatremia Current Visit: Yes Status: Acute Mild improvement , continue normal saline, closely monitor electrolytes --Obesity ; BMI 36.8 ; Current Visit: Yes Status: Acute patient needs weight reduction when medically stable Diet modification, exercise as tolerated and weight reduction When stable --DVT prophylaxis Current Visit: Yes Status: Acute On heparin and GI prophylaxis Cleared by surgery for discharge Stable at DC Disposition: DC-01 TO HOME OR SELFCARE Final Discharge Diagnosis (Prints w/discharge instructions): Acute cholecystitis. s/p lap cholecystectomy. Abdominal pain/resolved. Hyponatremia/improved. Obesity BMI 36.8 Time spent for discharge: 35 min Core Measure Documentation - Palliative Care Palliative Care/ Comfort Measures: Not Applicable - Core Measures Any of the following diagnoses?: none Exam - Constitutional Vitals: Temp Pulse Resp BP Pulse Ox 97.7 F 79 16 107/69 96 10/04/20 10:05 10/04/20 10:05 10/04/20 10:05 10/04/20 10:05 10/04/20 10:05 General appearance: Present: no acute distress, well-nourished - EENT Eyes: Present: PERRL, EOM intact - Neck Neck: Present: supple, normal ROM - Respiratory Respiratory effort: normal Respiratory: bilateral: diminished, negative: rales, rhonchi, wheezing - Cardiovascular Rhythm: regular Heart Sounds: Present: S1 & S2 - Extremities Extremities: no ischemia, No edema - Abdominal General gastrointestinal: Present: soft, non-tender, non-distended, normal bowel sounds - Integumentary Integumentary: Present: clear, warm - Musculoskeletal Musculoskeletal: strength equal bilaterally, generalized weakness - Psychiatric Psychiatric: appropriate mood/affect, cooperative - Neurologic Neurologic: CNII-XII intact, moves all extremities Plan Activity: advance as tolerated Diet: regular Additional Instructions: Diet as tolerated. Follow the postoperative instructions given to you by surgeon/discharge nurse. If you have worsening symptoms contact MD or go to emergency room Follow up with: MARK JEWELL DO [Staff Physician] - 14 Days PRIMARY CARE, [Primary Care Provider] - 7 Days Prescriptions: Simethicone [Gas-X] 62.5 mg PO TID #30 strip Mag Hydrox/Aluminum Hyd/Simeth [Maalox Advanced Suspension] 10 ml PO Q6H PRN #1 bottle PRN Reason: Gas Pain oxyCODONE /ACETAMINOPHEN [Percocet 5/325 mg] 1 tab PO Q6H PRN #20 tablet PRN Reason: Pain, Moderate (4-6)
[2020-10-04] MEDS ORDERED: SIMETHICONE 80 MG CHEW TAB PO PRN (16:27)
[2020-10-04] MEDS ORDERED: SIMETHICONE 80 MG CHEW TAB PO ONE (16:30)
[2020-10-04] MEDS ORDERED: ALUM-MAG HYDROXIDE-SIMETHICONE 200-200-20MG/5ML ORAL LIQD 30 ML PO ONE (16:34)
[2020-10-04 17:47] VITALS: BP 128/83
== END 2020-10-04 18:00 | disposition home or self-care (01) | DRG 418 ==
LOC: ED 11:49 → 3A 18:48 → 4A 21:26
PROVIDERS: ADMIT Internal Medicine; ATTEND Internal Medicine
PROC: 0FT44ZZ Resection of Gallbladder, Percutaneous Endoscopic Approach (ICD-10-PCS; principal; 2020-10-04)
DX: K80.00 Calculus of gallbladder with acute cholecystitis without obstruction (principal); E87.1 Hypo-osmolality and hyponatremia; E66.9 Obesity, unspecified; K21.9 Gastro-esophageal reflux disease without esophagitis; Z68.38 Body mass index [BMI] 38.0-38.9, adult; Z72.89 Other problems related to lifestyle; Z79.899 Other long term (current) drug therapy
CPT/HCPCS: 36415; 76705; 80053; 81001; 83036; 83690; 84703; 85025; 88304; 96361; 96365; 96375; 96376; G0378; A4217; J1170; J2270; J2405; J2543; J2704; J2710; J7030; J7042; J7120